=== PATIENT | female | born 2000 | race Two or more races ===

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

== ENCOUNTER 2020-02-18 14:10 | Emergency (ER) | payer MEDICAID, OTHER ==
[~2020-02-18] VITALS: Ht 154.9 cm; Wt 45.4 kg
[2020-02-18 14:57] VITALS: BP 132/78
== END 2020-02-18 16:26 | disposition home or self-care (01) ==
LOC: ER 14:10
DX: S62.323A Displaced fracture of shaft of third metacarpal bone, left hand, initial encounter for closed fracture (principal); V43.52XA Car driver injured in collision with other type car in traffic accident, initial encounter; Y93.89 Activity, other specified; Y99.8 Other external cause status; Y92.410 Unspecified street and highway as the place of occurrence of the external cause
CPT/HCPCS: 29125; 73120

== ENCOUNTER 2020-03-21 13:47 | Emergency (ER) | payer OTHER ==
[~2020-03-21] VITALS: Ht 177.8 cm; Wt 45.4 kg
[2020-03-21 13:55] VITALS: BP 118/82
== END 2020-03-21 15:28 | disposition home or self-care (01) ==
LOC: ER 13:47
DX: S62.303D Unspecified fracture of third metacarpal bone, left hand, subsequent encounter for fracture with routine healing (principal); X58.XXXD Exposure to other specified factors, subsequent encounter
CPT/HCPCS: 73130

== ENCOUNTER 2020-09-18 11:11 | Emergency (ER) | payer OTHER ==
[~2020-09-18] VITALS: Ht 152.4 cm; Wt 45.4 kg
[2020-09-18] MEDS ORDERED: cefTRIAXone SOD 1,000 MG VL IM ONE (11:45)
[2020-09-18 11:59] VITALS: BP 119/71
== END 2020-09-18 12:34 | disposition home or self-care (01) ==
LOC: ER 11:11
DX: K04.7 Periapical abscess without sinus (principal)
CPT/HCPCS: 96372; 99283; J0696

== ENCOUNTER 2022-02-17 17:10 | Emergency (ER) | payer MEDICAID, OTHER ==
[~2022-02-17] VITALS: Ht 152.4 cm; Wt 53.6 kg
[2022-02-17] MEDS ORDERED: PENI500T2 PO (22:49)
[2022-02-17] MEDS ORDERED: IBUP600T27 PO (22:49)
[2022-02-17 22:56] VITALS: BP 112/71
== END 2022-02-17 23:22 | disposition home or self-care (01) ==
LOC: ER 17:10
DX: J02.9 Acute pharyngitis, unspecified (principal)

== ENCOUNTER 2022-04-29 18:48 | Emergency (ER) | payer MEDICAID, OTHER ==
[~2022-04-29 18:48] MED LIST: IBUP600T27 PO; PENI500T2 PO
== END 2022-04-29 21:38 | disposition left against medical advice (07) ==
LOC: ER 18:48
DX: S49.92XA Unspecified injury of left shoulder and upper arm, initial encounter (principal); Z53.21 Procedure and treatment not carried out due to patient leaving prior to being seen by health care provider; X58.XXXA Exposure to other specified factors, initial encounter; Y93.89 Activity, other specified; Y92.89 Other specified places as the place of occurrence of the external cause; Y99.8 Other external cause status

== ENCOUNTER 2022-05-11 12:03 | Emergency (ER) | payer MEDICAID, OTHER ==
[2022-05-11 13:17] LABS: Hematocrit 43.4 % (36.0-46.0); Hemoglobin 14.7 g/dL (12.2-16.2); Mean Corpuscular Hemoglobin 28.5 pg (28.0-32.0); Mean Corpuscular Hgb Conc. 33.8 g/dL (32.0-36.0); Mean Corpuscular Volume 84.5 fL (80.0-100.0); Red Blood Cells 5.14 10^6/uL (4.0-5.20); Red Cell Distribution Width 13.5 % (11.8-14.3); White Blood Cell 4.1 10^3/uL (4.4-10.8)
[2022-05-11 13:31] LABS: Partial Thromboplastin Time 32.8 sec (24.6-33.4)
[2022-05-11 13:32] LABS: Albumin 3.4 g/dL (3.4-5.0); BUN/Creatinine Ratio 16.4; Basophils % (manual) 0 (0.0-2.0); Blast Cells 0; Calcium 8.6 mg/dL (8.5-10.1); Metamyelocytes % 0; Myelocytes % 0; Potassium 3.6 mmol/L (3.5-5.1); Promyelocytes % 0
[2022-05-11 13:35] LABS: Bilirubin, Total 0.4 mg/dL (0.2-1.0); Total Protein 7.5 g/dL (6.4-8.2)
[2022-05-11 14:14] LABS: Band Neutrophils % (manual) 3; Eosinophils % (manual) 4 (0-7); Lymphocytes % (manual) 53 (10.0-50.0); Monocytes % (manual) 9 (0-12); Reactive Lymphocytes 4
== END 2022-05-11 16:06 | disposition left against medical advice (07) ==
LOC: ER 12:03
DX: N93.8 Other specified abnormal uterine and vaginal bleeding (principal)
CPT/HCPCS: 36415; 80053; 84702; 85007; 85027; 85610; 85730; 86850; 86900; 86901

== ENCOUNTER 2022-08-26 18:32 | Emergency (ER) | payer MEDICAID, OTHER ==
[~2022-08-26] VITALS: Ht 154.9 cm; Wt 60.0 kg
[2022-08-26 19:00] VITALS: BP 119/81
[2022-08-26 21:30] LABS: Urine Bacteria FEW /hpf (None Seen); Urine Blood Negative /uL (Negative); Urine Mucus FEW (None Seen); Urine Specific Gravity 1.023 (1.001-1.035); Urine WBC 2 /hpf (0 - 5)
== END 2022-08-26 22:18 | disposition left against medical advice (07) ==
LOC: ER 18:32
DX: R10.31 Right lower quadrant pain (principal); R11.2 Nausea with vomiting, unspecified; Z53.21 Procedure and treatment not carried out due to patient leaving prior to being seen by health care provider
CPT/HCPCS: 36415; 81001

== ENCOUNTER 2022-12-01 13:46 | Emergency (ER) | payer MEDICAID ==
[~2022-12-01] VITALS: Ht 152.4 cm; Wt 57.2 kg
[~2022-12-01 13:46] MED LIST changes: +IBUP-1454 PO; -IBUP600T27 PO
[2022-12-01 14:00] VITALS: BP 105/67
[2022-12-01] MEDS ORDERED: DexAMETHasone SOD PHOS 10MG/1ML VIAL INJ IM ONE (14:45)
[2022-12-01] MEDS ORDERED: LORATADINE 10 MG TAB PO ONE (14:45)
[2022-12-01] MEDS ORDERED: IBUP-1454 PO (17:00)
[2022-12-01] MEDS ORDERED: LORA10CA PO (17:00)
[2022-12-01] MEDS ORDERED: PENI500T2 PO (17:00)
== END 2022-12-01 17:15 | disposition home or self-care (01) ==
LOC: ER 13:46
DX: J02.0 Streptococcal pharyngitis (principal); T78.3XXA Angioneurotic edema, initial encounter; Z79.1 Long term (current) use of non-steroidal anti-inflammatories (NSAID); Z79.2 Long term (current) use of antibiotics
CPT/HCPCS: 87070; 87880; 96372; 99283; J1100

== ENCOUNTER 2023-10-19 21:10 | Emergency (ER) | payer MEDICAID ==
[~2023-10-19] VITALS: Ht 162.6 cm; Wt 57.9 kg
[~2023-10-19 21:10] MED LIST changes: +LORA10CA PO
[2023-10-20] MEDS ORDERED: ACET500T58 PO (02:49)
[2023-10-20 03:54] VITALS: BP 127/74; PULSE 76; RESP 16; TEMP 98; O2SAT 98
== END 2023-10-20 03:57 | disposition home or self-care (01) ==
LOC: ER 21:10
DX: S93.602A Unspecified sprain of left foot, initial encounter (principal); X58.XXXA Exposure to other specified factors, initial encounter; Y93.01 Activity, walking, marching and hiking; Y92.89 Other specified places as the place of occurrence of the external cause; Y99.8 Other external cause status
CPT/HCPCS: 73630

== ENCOUNTER 2023-11-26 22:07 | Emergency (ER) | payer MEDICAID, OTHER ==
[~2023-11-26] VITALS: Ht 154.9 cm; Wt 54.5 kg
[~2023-11-26 22:07] MED LIST changes: +ACET500T58 PO
[2023-11-27 00:20] VITALS: BP 108/60; PULSE 76; RESP 18; TEMP 98.3; O2SAT 96
[2023-11-27] MEDS ORDERED: HYDR4CRE35 PR (00:59)
== END 2023-11-27 01:16 | disposition home or self-care (01) ==
LOC: ER 22:07
DX: L24.9 Irritant contact dermatitis, unspecified cause (principal)

== ENCOUNTER 2024-07-29 15:58 | Emergency (ER) | payer MEDICAID, OTHER ==
[~2024-07-29] VITALS: Ht 154.9 cm; Wt 52.5 kg
[~2024-07-29 15:58] MED LIST changes: +HYDR4CRE35 PR
--- NOTE | 2024-07-29 16:36 | ED.PDOC ---
PROFESSIONAL SKATER HPI Comments 24 y.o female presents to the ED for a chief complaint of pelvic pain associated with vaginal spotting and constipation x 4 days. Patient reports she was seen at [facility] on 07/25/24 for symptoms, had an ultrasound done which showed no Intrauterine but noticed a 1.3cm lesion to the right ovary. Patient reports an approximate 5 week . Patient had Beta HCG done and was told to return to the ED 1-2 days to retest the hcg levels. At this time patient continues to spot and complains of both cramping and sharp lower pelvic pain, worse on the left side. She denies any fever, chills, back pain, nausea, vomiting, blood clots. history of . Patient was diagnosed with a UTI as well during her visit 4 days ago and was prescribed antibiotics but she has not picked them up from the pharmacy yet. Chief Complaint: Pelvic Pain Time Seen by MD: 16:15 Reviewed Notes: Nurses Notes, Medications, Allergies Allergies: Coded Allergies: NO KNOWN ALLERGIES (Unverified , 12/30/09) Home Meds Active Scripts Hydrocortisone (Rectal) (Hydrocortisone) 1 % Cre, 1 % WI BID for 5 Days, #1 CRE Prov:SPENCER BARAHONA PAC 11/27/23 Acetaminophen (Acetaminophen) 500 Mg Tab, 500 MG PO Q4HPRN, #30 TAB 0 Refills Prov:ANGELICA MAY 10/20/23 Ibuprofen (Ibuprofen) 600 Mg Tab, 1 TAB PO TID, #20 TAB Prov:FIONA CHIANG PAC 12/01/22 Loratadine (Claritin) 10 Mg Cap, 10 MG PO DAILY for 10 Days, #10 CAP Prov:FIONA CHIANG PAC 12/01/22 Penicillin V Potassium (Veetids) 500 Mg Tab, 1 TAB PO TID for 10 Days, #30 TAB Prov:FIONA CHIANG PAC 12/01/22 Ibuprofen (Ibuprofen) 600 Mg Tab, 1 TAB PO TID PRN, #30 TAB Prov:KAMALA WHITING 02/17/22 Penicillin V Potassium (Veetids) 500 Mg Tab, 1 TAB PO BID for 10 Days, #20 TAB Prov:KAMALA WHITING 02/17/22 Information Source: Patient Mode of Arrival: Ambulatory Timing: Days (4) Severity: Moderate Vaginal Discharge: None Vaginal Lesions: None Bleeding Quality: Bright Red Vaginal Mass: None Onset Of Mass/Bleeding: Spontaneous Sexual Activity: Last Consensual [place]: Unknown Control: None History of: Current Associated Signs and Symptoms: Vaginal Bleeding, Abdominal Pain, Cramping Past Medical History PAST MEDICAL HISTORY: Denies Surgical History: Denies all surgeries CAN WORKER History: No 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 History Family History Family History: Unknown Social History Smoker: Non-Smoker Alcohol: Denies ETOH Use Drugs: Denies Drug Use Lives In: Home Constitutional: denies: chills, diaphoresis, fatigue, fever, malaise, sweats, weakness, others EENTM: denies: blurred vision, double vision, ear bleeding, ear discharge, ear drainage, ear pain, ear ringing, eye pain, eye redness, hearing loss, mouth pain, mouth swelling, nasal discharge, nose bleeding, nose congestion, nose pain, photophobia, tearing, throat pain, throat swelling, voice changes, others Respiratory: denies: cough, hemoptysis, orthopnea, SOB at rest, shortness of breath, SOB with excertion, stridor, wheezing, others Cardiovascular: denies: chest pain, dizzy spells, diaphoresis, Dyspnea on exertion, edema, irregular heart beat, left arm pain, lightheadedness, palpitations, PND, syncope, others Gastrointestinal: reports: abdominal pain, constipated; denies: abdomen distended, blood streaked bowels, diarrhea, dysphagia, difficulty swallowing, hematemesis, melena, nausea, poor appetite, poor fluid intake, rectal bleeding, rectal pain, vomiting, others Genitourinary: reports: abnormal vagina bleeding, pain, ; denies: burning, dyspareunia, dysuria, flank pain, frequency, hematuria, incontinence, vagina discharge, urgency, others Neurological: denies: dizziness, fainting, headache, left sided numbness, left sided weakness, numbness, paresthesia, pre-existing deficit, right sided numbness, right sided weakness, seizure, speech problems, tingling, tremors, weakness, others Musculoskeletal: denies: back pain, gout, joint pain, joint swelling, muscle pain, muscle stiffness, neck pain, others Integumetry: denies: bruises, change in color, change in hair/nails, dryness, laceration, lesions, lumps, rash, wounds, others Allergic/Immunocompromised: denies: Difficulty Healing, Frequent Infections, Hives, Itching, others Hematologic/Lymphatic: denies: anemia, blood clots, easy bleeding, easy bruising, swollen glands, others Endocrine: denies: excessive hunger, excessive sweating, excessive thirst, excessive urination, flushing, intolerance to cold, intolerance to heat, unexplained weight gain, unexplained weight loss, others Psychiatric: denies: anxiety, bipolar disorder, depression, hopeless, panic disorder, schizophrenia, sleepless, suicidal, others All Other Systems: Reviewed and Negative Physical Exam General Appearance: No Apparent Distress HEENT: Other (moist mucous membranes) Neck: Full Range of Motion, Normal Inspection Respiratory: Lungs Clear, No Accessory Muscle Use, No Respiratory Distress, Normal Breath Sounds Cardiovascular: No Edema, No JVD, Regular Rate/Rhythm Breast Exam: Deferred Gastrointestinal: Soft, Suprapubic, Tenderness Genitalia: Deferred Pelvic: Deferred Rectal: Deferred Extremities: Normal inspection, Normal range of motion, Non-tender, No pedal edema Neurologic: Alert (Oriented x4), Normal Affect, Normal Mood, Other (Ambulatory without difficulty. No gross focal deficit.) Cerebellar Function: NOT DONE Reflexes: NOT DONE Skin: Dry, Normal Color, Warm Lymphatic: NOT DONE Was a procedure done? Was a procedure done?: No Differential Diagnosis (CAN WORKER) Vaginal Bleeding: - Complete, - Incomplete, - Inevitable, - Missed, - Threatened, Abruptio Placentae, Blood Loss Anemia, Cervicitis, Ectopic , UTI X-Ray, Labs, Meds, VS Vital Signs Date Time Temp Pulse Resp B/P (MAP) Pulse Ox O2 Delivery O2 Flow Rate FiO2 07/29/24 16:16 98.0 78 20 118/67 (84) 95 Lab Test 07/29/24 16:55 Range/Units White Blood Count 8.7 4.4-10.8 10^3/uL Red Blood Count 5.01 4.0-5.20 10^6/uL Hemoglobin 14.5 12.2-16.2 g/dL Hematocrit 43.4 36.0-46.0 % Mean Corpuscular Volume 86.7 80.0-100.0 fL Mean Corpuscular Hemoglobin 29.0 28.0-32.0 pg Mean Corpuscular Hemoglobin Concent 33.4 32.0-36.0 g/dL Red Cell Distribution Width 13.2 11.8-14.3 % Platelet Count 261 140-450 10^3/uL Mean Platelet Volume 8.7 6.9-10.8 fL Neutrophils (%) (Auto) 56.0 37.0-80.0 % Lymphocytes (%) (Auto) 36.3 10.0-50.0 % Monocytes (%) (Auto) 3.6 0.0-12.0 % Eosinophils (%) (Auto) 3.6 0.0-7.0 % Basophils (%) (Auto) 0.5 0.0-2.0 % Neutrophils # (Auto) 4.9 1.6-8.6 10 ^3/uL Lymphocytes # (Auto) 3.1 0.4-5.4 10 ^3/uL Monocytes # (Auto) 0.3 0-1.3 10 ^3/uL Eosinophils # (Auto) 0.3 0-0.8 10 ^3/uL Basophils # (Auto) 0 0-0.2 10 ^3/uL Nucleated Red Blood Cells 0.1 % Sodium Level 139 136-145 mmol/L Potassium Level 4.1 3.5-5.1 mmol/L Chloride Level 105 98-107 mmol/L Carbon Dioxide Level 27 20-31 mmol/L Anion Gap 7 5-15 Blood Urea Nitrogen 12 9-23 mg/dL Creatinine 0.75 0.550-1.02 mg/dL Glomerular Filtration Rate Calc 114 >90 mL/min BUN/Creatinine Ratio 16.0 10.0-20.0 Serum Glucose 125 H 74-106 mg/dL Calcium Level 10.1 8.7-10.4 mg/dL Beta HCG, Quantitative 1489.1 H 1.5-4.2 mIU/mL PROCEDURE(s): OB4US - OB ULTRASOUND COMP LESS 14WKS REASON: vaginal spotting pelvic cramping ORDER NUMBER(s): [id number], ACCESSION NUMBER(s): [id number] OB EVALUATION, LESS THAN 14 WEEKS CLINICAL HISTORY: vaginal spotting pelvic cramping COMPARISON: None TECHNIQUE: Grayscale, color-flow Doppler, and spectral Doppler ultrasound of the pelvis is performed by transabdominal and transvaginal technique. FINDINGS: The uterus measures 6.3 x 4.5 x 4.8 cm. Heterogeneous endometrium measuring approximately 1.2 cm in thickness. No intrauterine gestational sac or pole identified at this time. Right ovary measures 3.7 x 2.8 x 3.1 cm. This includes an approximately 2.1 cm heterogeneous structure with peripheral vascularity. Left ovary measures 2.2 x 1.9 x 2.2 cm. Both ovaries demonstrate dopplerable blood flow on spectral analysis. Left ovary measures cm, with arterial and venous blood flow. No significant free fluid identified in the cul-de-sac. IMPRESSION: No evidence of intrauterine at this time. Given the above findings, differential diagnosis includes early , miscarriage/ failure as well as ectopic gestation. Recommend short-term interval follow-up as well as correlation with serial beta HCG testing. X-Ray, Labs, Meds, VS Comment 24-year-old female with no significant past medical history presenting for repeat ultrasound and repeat serum quantitative hCG after being seen on 07/25/2024 at another facility for evaluation of pelvic pain and vaginal spotting in At that time serum quantitative hCG was 194, an ultrasound showed no IUP and a heterogeneous 1.3 cm lesion of the right ovary favoring the appearance of a hemorrhagic cyst or corpus luteal cyst. Vitals unremarkable Exam remarkable for suprapubic tenderness to palpation Ob ultrasound: IMPRESSION: No evidence of intrauterine at this time. Given the above findings, differential diagnosis includes early , miscarriage/ failure as well as ectopic gestation. Recommend short-term interval follow-up as well as correlation with serial beta HCG testing. CBC and basic metabolic panel unremarkable. Serum quantitative hCG 1489.1 Treated with the following in the ED: Rocephin 1 g IM, Tylenol 1 g p.o. On re-evaluation, patient is resting comfortably with stable vitals. Abdominal exam is benign. Case discussed with Dr. Rodriguez who recommended the patient follow-up in [facility] on Tuesday08/01/24 at 9:[address] Xie for repeat serum quantitative hCG and repeat ultrasound. Patient was advised regarding workup findings, my impression, treatment plan and follow-up recommendations. She expressed understanding and agreed. Advised to fill her prescription for Keflex and begin taking it as soon as possible. Time of 1ST Reevaluation: 16:31 Reevaluation 1ST: Unchanged Patient Education/Counseling: Diagnosis, Treatment, Prognosis Family Education/Counseling: No Family Present Departure 1 Departure Time of Disposition: 19:12 Impression: Primary Impression: Vaginal bleeding during Disposition: 01 HOME / SELF CARE / HOMELESS Condition: Stable Referrals Follow up at [facility] Tuesday08/01/[address] Xie. Referrals: OBCLINIC Additional Instructions: Your serum quantitative hCG was 1489.1. Your ultrasound report is below. Follow-up in OBGYN clinic here on Tuesday08/01/2024 at 9:[address] Xie for repeat ultrasound and repeat serum quantitative hCG. Fill your prescription for Keflex and begin taking it as soon as possible. Take [id number] Tylenol as needed for pain. [place] [address] Ph: [phone] DIAGNOSTIC IMAGING Diagnostic Imaging Report : [id number] Signed PATIENT: RAY GUERRA ACCT: [id number] UNIT: [id number] : 2000 LOC: ER ROOM / BED: / AGE / SEX: 24 / F ADM STATUS: REG ER SERVICE 1630 ORDERING PHYSICIAN: ANASTASIIA STEVENSON MD PROCEDURE(s): OB4US - OB ULTRASOUND COMP LESS 14WKS REASON: vaginal spotting pelvic cramping ORDER NUMBER(s): [id number], ACCESSION NUMBER(s): [id number] OB EVALUATION, LESS THAN 14 WEEKS CLINICAL HISTORY: vaginal spotting pelvic cramping COMPARISON: None TECHNIQUE: Grayscale, color-flow Doppler, and spectral Doppler ultrasound of the pelvis is performed by transabdominal and transvaginal technique. FINDINGS: The uterus measures 6.3 x 4.5 x 4.8 cm. Heterogeneous endometrium measuring approximately 1.2 cm in thickness. No intrauterine gestational sac or pole identified at this time. Right ovary measures 3.7 x 2.8 x 3.1 cm. This includes an approximately 2.1 cm heterogeneous structure with peripheral vascularity. Left ovary measures 2.2 x 1.9 x 2.2 cm. Both ovaries demonstrate dopplerable blood flow on spectral analysis. Left ovary measures cm, with arterial and venous blood flow. No significant free fluid identified in the cul-de-sac. IMPRESSION: No evidence of intrauterine at this time. Given the above findings, differential diagnosis includes early , miscarriage/ failure as well as ectopic gestation. Recommend short-term interval follow-up as well as correlation with serial beta HCG testing. Discharged With: Self Critical Care Note Critical Care Time?: No Stability Stability form required: No I personally scribed for ANASTASIIA STEVENSON MD ([email or web address]) on 07/29/24 at 16:36. Electronically submitted by Rubi Mehta ([facility]). I personally scribed for ANASTASIIA STEVENSON MD ([email or web address]) on 07/29/24 at 16:44. Electronically submitted by Rubi Mehta ([facility]). ANASTASIIA STEVENSON MD Jul 29, 2024 16:36
[2024-07-29 17:03] LABS: Basophils # (auto) 0 10 ^3/uL (0-0.2); Basophils % (auto) 0.5 % (0.0-2.0); Eosinophils # (auto) 0.3 10 ^3/uL (0-0.8); Eosinophils % (auto) 3.6 % (0.0-7.0); Hematocrit 43.4 % (36.0-46.0); Hemoglobin 14.5 g/dL (12.2-16.2); Lymphocytes # (auto) 3.1 10 ^3/uL (0.4-5.4); Lymphocytes % (auto) 36.3 % (10.0-50.0); Mean Corpuscular Hgb Conc. 33.4 g/dL (32.0-36.0); Mean Corpuscular Volume 86.7 fL (80.0-100.0); Monocytes # (auto) 0.3 10 ^3/uL (0-1.3); Monocytes % (auto) 3.6 % (0.0-12.0); Neutrophils # (auto) 4.9 10 ^3/uL (1.6-8.6); Nucleated Red Blood Cells % 0.1 %; Platelet Count (auto) 261 10^3/uL (140-450); Red Blood Cells 5.01 10^6/uL (4.0-5.20); Red Cell Distribution Width 13.2 % (11.8-14.3); White Blood Cell 8.7 10^3/uL (4.4-10.8)
[2024-07-29 17:13] LABS: Chloride 105 mmol/L (98-107); Potassium 4.1 mmol/L (3.5-5.1); Sodium 139 mmol/L (136-145)
[2024-07-29 17:14] LABS: Anion Gap 7 (5-15); Carbon Dioxide 27 mmol/L (20-31)
[2024-07-29 17:15] LABS: Calcium 10.1 mg/dL (8.7-10.4)
[2024-07-29 17:20] LABS: Blood Urea Nitrogen 12 mg/dL (9-23); Glucose 125 mg/dL (74-106)
--- NOTE | 2024-07-29 19:06 | DVH ---
OB EVALUATION, LESS THAN 14 WEEKS CLINICAL HISTORY: vaginal spotting pelvic cramping COMPARISON: None TECHNIQUE: Grayscale, color-flow Doppler, and spectral Doppler ultrasound of the pelvis is performed by transabdominal and transvaginal technique. FINDINGS: The uterus measures 6.3 x 4.5 x 4.8 cm. Heterogeneous endometrium measuring approximately 1.2 cm in t hickness. No intrauterine gestational sac or pole identified at this time. Right ovary measures 3.7 x 2.8 x 3.1 cm. This includes an approximately 2.1 cm heterogeneous structur e with peripheral vascularity. Left ovary measures 2.2 x 1.9 x 2.2 cm. Both ovaries demonstrate dopplerable blood flow on spectral analysis. Left ovary measures cm, with arterial and venous blood flow. No significant free fluid identified in the cul-de-sac. IMPRESSION: No evidence of intrauterine at this time. Given the above findings, differential diagnosis includes early , miscarriage/ failure as well as ectopic gestation. Recommend short -term interval follow-up as well as correlation with serial beta HCG testing.
[2024-07-30] MEDS: cefTRIAXone W LIDOCAINE 1 GM IM IM ONE (00:09)
[2024-07-30 00:10] VITALS: BP 108/55; PULSE 83; RESP 18; TEMP 98.2; O2SAT 96
[2024-07-30] MEDS: ACETAMINOPHEN 500 MG TAB or CAP PO ONE (00:10)
== END 2024-07-30 00:19 | disposition home or self-care (01) ==
LOC: ER 15:58
DX: O20.8 Other hemorrhage in early pregnancy (principal); O99.611 Diseases of the digestive system complicating pregnancy, first trimester; K59.00 Constipation, unspecified; Z87.440 Personal history of urinary (tract) infections; Z3A.01 Less than 8 weeks gestation of pregnancy
CPT/HCPCS: 36415; 76801; 76817; 80048; 84702; 85025